=== PATIENT | male | born 1940 | race Two or more races ===

== ENCOUNTER → 2025-03-28 | Outpatient (CLI) | payer MEDICARE, MEDICAID, SELFPAY ==
--- NOTE | 2025-03-28 13:07 | XR_ITS ---
Examination: Bilateral hands, 6 views. Technique: AP, Oblique, Lateral each hand total 6 views Date and time of exam: March 28, 2025, 1317 hours INDICATIONS: Bilateral hand pain beginning 2 months ago. 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
== END | disposition home or self-care (01) ==
LOC: CDIM 13:02
PROVIDERS: Referring Provider Student in an Organized Health Care Education/Training Program; Visit Provider Student in an Organized Health Care Education/Training Program
DX: M18.0 Bilateral primary osteoarthritis of first carpometacarpal joints (principal); M19.042 Primary osteoarthritis, left hand; M19.041 Primary osteoarthritis, right hand
CPT/HCPCS: 73130

== ENCOUNTER 2025-04-18 12:32 | Inpatient (IN) | payer MEDICARE, MEDICAID, SELFPAY ==
[2025-04-18 12:55] VITALS: BP 100/65; PULSE 89; RESP 17; TEMP 36.6; O2SAT 95
--- NOTE | 2025-04-18 12:59 | EKG_ITS ---
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
--- NOTE | 2025-04-18 12:59 | PD.EDRME ---
Rapid Medical Screening Exam RME Arrival date/time: 04/18/25 12:32 84-year-old male with a history of hypertension, hyperlipidemia, type 2 diabetes, presents to the emergency room with a chief complaint of bodyaches, joint pain, and frequent falls x 1 month I have greeted and performed a focused initial assessment of this patient. A comprehensive ED assessment and evaluation of the patient, analysis of all test results, and completion of the medical decision making process will be conducted by additional ED providers. Chief Complaint: Fall Time Seen by Provider: 04/18/25 12:51 Vital signs: Vital Signs Temperature 97.9 F 04/18/25 12:55 Pulse Rate 89 04/18/25 12:55 Respiratory Rate 17 04/18/25 12:55 Blood Pressure 100/65 04/18/25 12:55 Pulse Oximetry (%) 95 04/18/25 12:55 Oxygen Delivery Method Room Air 04/18/25 12:55 Vital signs reviewed by provider: Yes Exam: GCS of 15 Clear bilateral lung sounds Soft nontender abdomen Clinical Impression: Anemia/chronic kidney disease/arthritis
[2025-04-18 13:24] LABS: Basophils # (Auto) 0.0 Thou/mm3 (0.0-0.2); Basophils % (Auto) 0 % (0-2.5); Eosinophils # (Auto) 0.0 Thou/mm3 (0.0-0.5); Eosinophils % (Auto) 0 % (0-10); Hematocrit 39.6 % (41.0-53.0); Hemoglobin 13.6 g/dL (13.5-16.0); Immature Granulocytes Auto 0.03 Thou/mm3 (0.00-0.00); Lymphocytes # (Auto) 1.0 Thou/mm3 (1.0-4.8); Lymphocytes % (Auto) 9 % (10-50); Mean Corpuscular HGB Conc 34.3 g/dl (31.0-37.0); Mean Corpuscular Hemoglobin 29.6 pg (25.0-35.0); Mean Corpuscular Volume 86 fL (80-100); Monocytes # (Auto) 0.6 Thou/mm3 (0.0-0.8); Monocytes % (Auto) 5 % (0-12); Neutrophils # (Auto) 9.8 Thou/mm3 (1.8-7.7); Neutrophils % (Auto) 85 % (37-80); Nucleated Red Blood Cell # 0.00 Thou/mm3 (0.00-0.00); Nucleated Red Blood Cell % 0 /100 WBC (0); Platelet Count 334 Thou/mm3 (140-440); RDW Standard Deviation 43.4 fL (35.1-43.9); Red Blood Count 4.60 Miln/mm3 (4.50-5.90); White Blood Count 11.5 Thou/mm3 (3.8-10.6)
[2025-04-18 13:34] LABS: INR 1.1 (0.9-1.3); Partial Thromboplastin Time 31.7 Seconds (22.0-36.0); Prothrombin Time 11.4 Seconds (9.0-12.2)
[2025-04-18 13:37] LABS: B-Type Natriuretic Peptide 44 pg/mL (0-100)
[2025-04-18 13:43] LABS: Alanine Aminotransferase 25 U/L (10-49); Albumin, Serum 4.7 gm/dL (3.4-4.8); Albumin/Globulin Ratio 1.7 (1.2-2.2); Alkaline Phosphatase 126 U/L (46-116); Anion Gap 14 (7-16); Aspartate Amino Transferase 29 U/L (0-34); BUN/Creatinine Ratio 20 Ratio (12-20); Bilirubin,Total 1.1 mg/dL (0.3-1.2); Blood Urea Nitrogen 18 mg/dL (9-23); Calcium 9.4 mg/dL (8.3-10.6); Calcium (Corrected) 9.4 mg/dL (8.5-10.1); Carbon Dioxide 24.9 mMol/L (20.0-31.0); Chloride 107 mMol/L (98-107); Creatinine (Component) 0.9 mg/dL (0.6-1.3); Free T4 (Free Thyroxine) 1.55 ng/dL (0.89-1.76); Globulin 2.7 gm/dL (2.3-3.5); Glucose 204 mg/dL (74-106); Magnesium 1.6 mg/dL (1.6-2.6); Osmolality,Calculated 298 (275-295); Potassium 4.0 mMol/L (3.4-5.1); Sodium 146 mMol/L (136-145); Thyroid Stimulating Hormone 1.25 uIU/mL (0.55-4.78); Total Protein 7.4 gm/dL (5.7-8.2); Troponin I 0.024 ng/mL (0.0-0.045); eGFR > 60 See Note
[2025-04-18] MEDS: KETOROLAC INJ 60 MG/2 ML VIAL 30 MG IM (16:34)
[2025-04-18 16:56] LABS: Collection Type, Urine Clean Catch
[2025-04-18 17:13] LABS: Bacteria,Urine 3+; Bilirubin,Urine Negative (Negative); Blood,Urine 2+ (Negative); Clarity,Urine Turbid (Clear/Hazy); Color,Urine Yellow (Lt Yel-Yel); Glucose, Urine Negative (Negative); Ketones,Urine 1+ (Negative); Leukocyte Esterase,Urine Positive (Negative); Nitrite,Urine Negative (Negative); PH,Urine 5.5 (5.0-7.0); Protein,Urine 1+ (Neg - Trace); RBC,Urine 22 /hpf (0-3); Specific Gravity,Urine 1.020 (1.001-1.035); Squamous Epithelial Cell,Urine 9 /hpf (0-5); Urobilinogen,Urine 2.0 mg/dL (0.0-1.0); WBC,Urine 87 /hpf (0-5)
[2025-04-18 17:14] LABS: Culture Indicated,Urine Yes
--- NOTE | 2025-04-18 18:31 | PD.EDFALL ---
ED Fall Injury RME/HPI General Chief Complaint: Fall Stated Complaint: FALL X 2, WEAK, SWOLLEN HANDS Time Seen by Provider: 04/18/25 12:51 Arrival date/time: 04/18/25 12:32 RME / HPI RME / HPI Narrative: 04/18/25 12:32 84-year-old male with a history of hypertension, hyperlipidemia, type 2 diabetes, presents to the emergency room with a chief complaint of bodyaches, joint pain, and frequent falls x 1 month I have greeted and performed a focused initial assessment of this patient. A comprehensive ED assessment and evaluation of the patient, analysis of all test results, and completion of the medical decision making process will be conducted by additional ED providers. See MDM for Dr. Shultz's HPI documentation. Related Data Home Medications ?Medication ?Instructions ?Recorded ?Confirmed lisinopril 20 mg tablet 20 mg PO QDAY 02/15/21 09/29/23 lovastatin 20 mg tablet 20 mg PO QDAY 02/15/21 09/29/23 metformin 850 mg tablet 850 mg PO BID 02/15/21 09/29/23 Allergies Allergy/AdvReac Type Severity Reaction Status Date / Time No Known Allergies Allergy Verified 04/18/25 12:37 Review of Systems Review of Systems Systems Reviewed: All systems reviewed, normal except as documented Past Medical History Social History SMOKING STATUS: Never smoker ED Exam Narrative Physical exam: See [facility] for Dr. Shultz's physical exam documentation. Course Quality Measures none Orders Category Date Time Status Admit to Inpatient Status Routine Admission 04/18/25 21:40 Active Patient Condition Routine Admission 04/18/25 21:40 Ordered Bedside COVID-19 Antigen Test NOW Care 04/18/25 18:53 Active Bedside Influenza A&B Antigen Test NOW Care 04/18/25 18:53 Completed Continuous Pulse Oximetry NOW Care 04/18/25 21:39 Active EKG (ED ONLY) *Do not use* NOW Care 04/18/25 12:59 Completed Miscellaneous Nursing Order NOW Care 04/18/25 21:40 Active Notify provider NEEDED Care 04/18/25 21:40 Active Saline [Insert IV] NOW Care 04/18/25 18:53 Active Strict Intake and Output Routine Care 04/18/25 21:41 Ordered Diet Carbohydrate Consistent Diet 04/19/[address] cervical spine wo con Stat Exams 04/18/25 18:[address] chest abdomen pelvis wo Stat Exams 04/18/25 18:[address] head/brain wo con Stat Exams 04/18/25 18:57 Completed EKG (ED Only) Stat Exams 04/18/25 12:59 Draft XR chest 1V portable Stat Exams 04/18/25 18:56 Completed XR femur BI min 2V Stat Exams 04/18/25 18:56 Completed XR foot comp LT min 3V Stat Exams 04/18/25 18:56 Completed XR tibia fibula LT 2V Stat Exams 04/18/25 18:56 Completed B-Type Natriuretic Peptide Stat Lab 04/18/25 13:10 Completed Beta Hydroxybutyrate Stat Lab 04/18/25 19:20 Completed Blood Culture (Lab) Stat Lab 04/18/25 19:20 Received CBC AM DRAW Lab 04/28/25 05:00 Ordered CBC AM DRAW Lab 04/29/25 05:00 Ordered CBC AM DRAW Lab 04/19/25 05:00 Ordered CBC AM DRAW Lab 04/20/25 05:00 Ordered CBC AM DRAW Lab 04/21/25 05:00 Ordered CBC AM DRAW Lab 04/22/25 05:00 Ordered CBC AM DRAW Lab 04/23/25 05:00 Ordered CBC AM DRAW Lab 04/24/25 05:00 Ordered CBC AM DRAW Lab 04/25/25 05:00 Ordered CBC AM DRAW Lab 04/26/25 05:00 Ordered CBC AM DRAW Lab 04/27/25 05:00 Ordered CBC Stat Lab 04/18/25 13:10 Completed CK [Creatine Kinase] Stat Lab 04/18/25 19:25 Received CRP [C-Reactive Protein] Stat Lab 04/18/25 19:20 Completed Comprehensive Metabolic Panel Stat Lab 04/18/25 13:10 Completed ESR [Sed Rate (ESR)] Stat Lab 04/18/25 19:20 Completed Free T4 (Free Thyroxine) Stat Lab 04/18/25 13:10 Completed Hemoglobin A1C [Glycohemoglobin w (eAG)] Stat Lab 04/18/25 19:20 Completed Lactate (Lactic Acid) Stat Lab 04/18/25 19:25 Completed Magnesium AM DRAW Lab 04/19/25 05:00 Ordered Magnesium Stat Lab 04/18/25 13:10 Completed Partial Thromboplastin Time Stat Lab 04/18/25 13:10 Completed Phosphorous AM DRAW Lab 04/19/25 05:00 Ordered Procalcitonin Stat Lab 04/18/25 19:20 Completed Prothrombin Time with INR Stat Lab 04/18/25 13:10 Completed Renal Function Panel AM DRAW Lab 04/28/25 05:00 Ordered Renal Function Panel AM DRAW Lab 04/29/25 05:00 Ordered Renal Function Panel AM DRAW Lab 04/19/25 05:00 Ordered Renal Function Panel AM DRAW Lab 04/20/25 05:00 Ordered Renal Function Panel AM DRAW Lab 04/21/25 05:00 Ordered Renal Function Panel AM DRAW Lab 04/22/25 05:00 Ordered Renal Function Panel AM DRAW Lab 04/23/25 05:00 Ordered Renal Function Panel AM DRAW Lab 04/24/25 05:00 Ordered Renal Function Panel AM DRAW Lab 04/25/25 05:00 Ordered Renal Function Panel AM DRAW Lab 04/26/25 05:00 Ordered Renal Function Panel AM DRAW Lab 04/27/25 05:00 Ordered TSH [Thyroid Stimulating Hormone] Stat Lab 04/18/25 13:10 Completed Troponin I Stat Lab 04/18/25 13:10 Completed Urinalysis, C/S if Indicated Stat Lab 04/18/25 16:49 Completed Urine Culture Stat Lab 04/18/25 16:49 Received VBG [Venous Blood Gas] Stat Lab 04/18/25 19:20 Completed Acetaminophen Tab [Tylenol Tab] Med 04/18/25 21:39 Active 650 mg PO Q6H PRN Heparin Inj Med 04/18/25 21:45 Active 5,000 unit SC Q12H Ketorolac Inj [Toradol Inj] Med 04/18/25 13:01 Discontinued 30 mg IM X1 ONE Magnesium Sulfate 2 GM Ivpb [Magnesium Sulfate Ivpb] Med 04/18/25 18:57 Discontinued 2 gm in 50 ml IV X1 MethylPREDNISolone.* [SoluMEDROL Inj] Med 04/18/25 18:56 Discontinued 125 mg IVP X1 ONE Morphine* Inj Med 04/18/25 18:53 Discontinued 2 mg IV X1 ONE Ondansetron Inj [Zofran Inj] Med 04/18/25 21:39 Active 4 mg IVP Q6H PRN Ondansetron Inj [Zofran Inj] Med 04/18/25 18:53 Discontinued 4 mg IVP X1 ONE Sodium Chloride 0.9% 1000 ml [Ns] 1,000 ml Med 04/18/25 18:53 Discontinued IV 999 mls/hr cefTRIAXone/D5w 1gm IV premix [Rocephin/D5w 1gm IV Med 04/18/25 18:55 Discontinued premix] 1 gm in 50 ml IV X1 Code Status Routine Oth 04/18/25 21:39 Ordered Oxygen Delivery PRN RT 04/18/25 21:39 Active Vital Signs Vital signs: Vital Signs Temperature 97.9 F 04/18/25 12:55 Pulse Rate 89 04/18/25 12:55 Respiratory Rate 17 04/18/25 12:55 Blood Pressure 100/65 04/18/25 12:55 Pulse Oximetry (%) 95 04/18/25 12:55 Oxygen Delivery Method Room Air 04/18/25 12:55 Fall MDM Narrative MDM Narrative:: This section includes all my notes and documentations, including HPI, PE, and ED course. Augustine Shultz MD HPI: 84-year-old male with DM, HTN, BPH, Hyperlipidemia here with generalized weakness and inability to stand and walk. Normally, he walks without assistance and very independent, living alone in a trailer. The day before yesterday, found him on the floor in the trailer. He reported he fell getting out of his sofa due to weakness. After the incident, he was able to ambulate slowly with a walker. Earlier today in the morning, she found him again on the floor. This time, he couldn't remember how he ended up on the floor. Uncertain about falling or head injury or passing out. Daughter reports significant weight loss in the past few months. He has known skin cancer. Uncertain about metastasis. No other complaints. ROS: All negative except as documented in HPI. Physical Exam: General: Alert and oriented. Appearance of malaise and fatigue noted. Eyes: Conjunctivae and lids clear. EOMI. PERRL. ENT: No nasal congestion. Neck: Supple. No carotid bruit. No JVD. Heart: RRR. Lungs: No respiratory distress. Good air movement. No rhonchi, wheezing, rales. Chest: No tenderness. Abdomen: Soft and nontender. Normal bowel sounds. No distension. No rebound or guarding. Back: No CVA tenderness. Legs: No clubbing, cyanosis, edema. Skin: Warm and dry. Neuro: Alert and oriented X 3. Cranial Nerves II-XII grossly intact. No peripheral motor deficits. Musculoskeletal: Equivocal tenderness of right hip/knee and left hip/knee/ankle/foot. All other major joints and bones are not tender with no limited ROM. I reviewed all diagnostic test results. My interpretation of the EKG is NSR. My interpretation of the chest x-ray is: NAD. My interpretation of the bilateral femur x-ray is no fracture. My interpretation of the left foot x-ray is no fracture. My interpretation of the left tibia fibula x-ray is no fracture. My review of the CT head report is: NAD. My review of the CT cervical spine report is no fracture. My review of the CT chest abdomen pelvis report is: NAD. Blood tests remarkable for WBC 11.5, Glucose 204, CRP 8.1. ESR 44. UA remarkable for 1+ ketones, positive leukocyte esterase, 22 RBCs, 87 WBCs, and 3+ bacteria. COVID/Influenza negative. At this point, diagnoses include: UTI (urinary tract infection) Fall Syncope Weight loss Treatment here included: Morphine 2 mg IV Zofran 4 mg IV Solumedrol 125 mg IV MgSO4 2 gram IV Rocephin 1 g IV IVF Some improvement noted. I discussed the case with our hospitalist. About the presentation and exam and diagnostics and treatments here. And need of further care in the hospital. Will accept the patient. Augustine Shultz MD Patient data External records reviewed:: [facility] previous records (Per chart review, patient was seen here on 02/25/22 for a chest wall contusion.) Clinical information provided by:: patient and family Social determinants that could affect healthcare access:: none Patient has the following chronic illnesses:: DM, HTN, BPH How is presenting disease/condition affected by chronic disease/condition?: uneffected by Evaluation data The following diagnostics were reviewed and interpreted by me:: lab results, radiology exam(s) and EKG tracing(s) (My interpretation of the EKG: NSR (84 bpm) with no ST-T changes. Augustine Shultz MD) Lab and/or radiology exams considered but not ordered:: none Interpretation Summary: I reviewed all diagnostic test results. My interpretation of the EKG is NSR. My interpretation of the chest x-ray is: NAD. My interpretation of the bilateral femur x-ray is no fracture. My interpretation of the left foot x-ray is no fracture. My interpretation of the left tibia fibula x-ray is no fracture. My review of the CT head report is: NAD. My review of the CT cervical spine report is no fracture. My review of the CT chest abdomen pelvis report is: NAD. Blood tests remarkable for WBC 11.5, Glucose 204, CRP 8.1. ESR 44. UA remarkable for 1+ ketones, positive leukocyte esterase, 22 RBCs, 87 WBCs, and 3+ bacteria. COVID/Influenza negative. Medications / Prescriptions Medications or Prescriptions considered but not ordered:: none Medication administrations:: Medication Administration History Acetaminophen (Acetaminophen 325 Mg Tablet) 650 mg PO Q6H PRN PRN Reason: Fever >101.5 or pain 1-3 Stop: 05/18/25 21:38 Dextrose (Dextrose 50%-Water Inj 50 Ml Syringe) 25 ml IV Q15MIN PRN PRN Reason: BG 50-70 responsive npo pt Stop: 05/18/25 22:05 Dextrose (Dextrose 50%-Water Inj 50 Ml Syringe) 50 ml IV Q15MIN PRN PRN Reason: BG <50 OR BG <70 & pt unresponsive Stop: 05/18/25 22:05 Glucagon (Glucagon Inj 1 Mg Vial) 1 mg IM Q15MIN PRN PRN Reason: BG <70, and no IV access Heparin Sodium (Porcine) (Heparin Sod Inj 5000 Unit/Ml Vial) 5,000 unit SC Q12H KAREEM Stop: 05/02/25 21:44 Piperacillin/Tazobactam/Dextrose (Zosyn) 50 mls @ 100 mls/hr IV Q6HR [facility]; Protocol Stop: 04/25/25 21:45 Piperacillin/Tazobactam/Dextrose (Zosyn) 3.375 gm in 50 mls @ 100 mls/hr IV X1 ONE; Protocol Stop: 04/18/25 22:29 Insulin Human Lispro (Insulin Lispro (Admelog) 1 Unit/0.01 Ml Unit) 0 unit SC AC [facility]; Protocol Stop: 05/19/25 07:29 Ondansetron HCl (Ondansetron Inj 2 Mg/Ml Inj 2 Ml) 4 mg IVP Q6H PRN; Protocol PRN Reason: NAUSEA OR VOMITING Stop: 05/18/25 21:38 Discontinued Medications Sodium Chloride (Ns) 1,000 mls @ 999 mls/hr IV .Q1H1M ONE Stop: 04/18/25 19:53 Last Infusion: 04/18/25 21:15 Dose: Infused Documented By: Admin: 04/18/25 20:04 Dose: 999 mls/hr Documented By: CARMINA Ceftriaxone Sodium/Dextrose (Rocephin/D5w 1gm Iv Premix) 1 gm in 50 mls @ 100 mls/hr IV X1 ONE Stop: 04/18/25 19:24 Last Infusion: 04/18/25 20:47 Dose: Infused Documented By: Admin: 04/18/25 20:07 Dose: 100 mls/hr Documented By: CARMINA Magnesium Sulfate (Magnesium Sulfate Ivpb) 2 gm in 50 mls @ 25 mls/hr IV X1 ONE Stop: 04/18/25 20:56 Last Admin: 04/18/25 20:46 Dose: 25 mls/hr Documented By: CARMINA Ketorolac Tromethamine (Ketorolac Inj 60 Mg/2 Ml Vial) 30 mg IM X1 ONE Stop: 04/18/25 13:02 Last Admin: 04/18/25 16:34 Dose: 30 mg Documented By: VON Methylprednisolone Sodium Succinate (Methylprednisolone Sod Succ 62.5 Mg/Ml 2ml Vial) 125 mg IVP X1 ONE Stop: 04/18/25 18:57 Last Admin: 04/18/25 20:04 Dose: 125 mg Documented By: CARMINA Morphine Sulfate (Morphine Sulf Inj 4 Mg/Ml Vial) 2 mg IV X1 ONE Stop: 04/18/25 18:54 Last Admin: 04/18/25 21:38 Dose: Not Given Documented By: CARMINA Non-Admin Reason: Patient Refused Ondansetron HCl (Ondansetron Inj 2 Mg/Ml Inj 2 Ml) 4 mg IVP X1 ONE; Protocol Stop: 04/18/25 18:54 Last Admin: 04/18/25 21:40 Dose: Not Given Documented By: CARMINA Non-Admin Reason: Change of Condition Treatment here included: Morphine 2 mg IV Zofran 4 mg IV Solumedrol 125 mg IV MgSO4 2 gram IV Rocephin 1 g IV IVF Consultations Consultation(s) initiated? (list below): Yes Consultation #1 (Physician, Specialty, Details): I discussed the case with our hospitalist. About the presentation and exam and diagnostics and treatments here. And need of further care in the hospital. Will accept the patient. Diagnosis Fall Differential Diagnosis: syncope, fracture of wrist, compression fracture, concussion with loss of consciousness and concussion without loss of consciousness Most likely diagnosis given after review of the tests above:: UTI (urinary tract infection) Fall Syncope Weight loss Admission Indicated Admission indicated?: indicated Explain why admission is indicated or not indicated:: UTI (urinary tract infection) Fall Syncope Weight loss Admission Request Was there a request for admission?: Yes Admission Attestation Admission request attestation: Discussed case with Hospitalist service regarding admission. Discussed patients ED course, exam findings, labs, and radiology results. Agreed to accept the patient for admission. Disposition Plan Disposition Plan: Admit Discharge Plan Plan Patient Disposition: Admit Acute Care w/in Hospital Problem List Clinical Impression: UTI (urinary tract infection), Fall, Syncope, Weight loss
[2025-04-18 18:45] VITALS: BP 142/81; PULSE 79; RESP 17; TEMP 36.8; O2SAT 96
--- NOTE | 2025-04-18 18:45 | PC.NURSE ---
Pt. here to room 18 via wheel chair from home, pt. lives alone and was found on the ground next to the couch by his daughter who lives in [place] and is here visiting pt. Daughter states pt. has lost a lot of weight from Thanksgiving when daughter saw pt. till now. Daughter states pt. has fallen now twice and states pt. told her that his brain tells his legs to work but they won't. Pt. is weak and needed assistance from wheel chair to bed 18. Pt. states he has pain to his arms and both shoulders. Pt. has edema to both hands and both lower legs bilateral +2. Daughter states the decline in pt. from Thanksgi till now is shocking to her. Daughter states pt. was driving 2 weeks ago.
--- NOTE | 2025-04-18 18:56 | XR_ITS ---
Examination: Foot, left, 3 views Technique: AP, oblique, lateral views foot, 3 views Date and time of exam: April 18, 2025, 1934 hours INDICATIONS: Patient fell today with into the foot, foot pain. FINDINGS: Nonstandard views No acute fracture No dislocation IMPRESSION: No acute fracture
--- NOTE | 2025-04-18 18:56 | XR_ITS ---
EXAMINATION: Right and left femur 4 views TECHNIQUE: AP lateral right and left femur total 4 views Date and time: April 18, 2025, 192 hours INDICATIONS: Patient fell today with injury of both lower legs, bilateral lower leg pain. FINDINGS: Moderate narrowing bilateral hip joints No bilateral hip fracture or dislocation Right and left femoral shafts intact IMPRESSION: No acute fractures
--- NOTE | 2025-04-18 18:56 | XR_ITS ---
EXAMINATION: AP chest single view TECHNIQUE: AP portable upright chest single view Date and time: April 18, 2025, 1938 hours, comparison December 04, 2022 INDICATIONS: Shortness of breath today. FINDINGS: Mild prominence left ventricle Moderate vascular congestion Suspicious for early septal edema at the lung bases No lobar pneumonia Prominent osteopenia IMPRESSION: Early heart failure
--- NOTE | 2025-04-18 18:56 | XR_ITS ---
Examination: Tibia-Fibula, left, 2 views Technique: Tibia-fibula AP lateral 2 views Date and time of exam: April 23, 2025, 1932 hours INDICATIONS: Patient fell today with injury to the lower leg, lower leg pain. FINDINGS: No acute fracture No dislocation No foreign body IMPRESSION: No acute fracture
--- NOTE | 2025-04-18 18:57 | XR_ITS ---
Examination: CT chest, without intravenous contrast. CT abdomen, without intravenous contrast. CT pelvis, without intravenous contrast. 2-D sagittal and coronal reconstructions. 3-D reconstructions. Date and time of exam: April 18, 2025, 1912 hours INDICATIONS: Frequent falls today with injury of the chest and abdomen, chest pain abdomen pain CTDI vol (mgy) 7.06 DLP (MGycm) 474 Technique: Multiple CT images, 3.0 mm slice thickness, obtained chest, abdomen, pelvis, with the high-resolution 64 slice scanner.. Sagittal and coronal 2-D reconstructions are obtained. 3-D reconstructions Low dose protocols were performed. One or more of the following dose reduction techniques were used; automated exposure control, adjustment of the mA and/or KV according to patient size, use of iterative reconstruction technique. Findings: Thoracic aorta pulmonary arteries appear intact No hemopericardium Prominent calcification left anterior descending coronary artery Mild enlargement cardiac contour. No pneumothorax pulmonary contusion or hemothorax The manubrium and the body of the sternum are intact No thoracic lumbar or sacral fracture noted Ribs appear intact No liver splenic or renal laceration No perinephric hematoma Benign left renal cyst Aorta normal size No bowel obstruction Normal appendix Negative for pneumoperitoneum Tiny air droplets in the urinary bladder Moderate prostatomegaly Bones of the pelvis and hips appear intact IMPRESSION: Thoracic aorta pulmonary arteries intact No hemopericardium, pneumothorax, pulmonary contusion or hemothorax No abdominal parenchymal laceration No free blood in the abdomen or pelvis Abdominal aorta intact
--- NOTE | 2025-04-18 18:57 | XR_ITS ---
Examination: CT brain head without contrast. 2-D sagittal coronal reconstructions Date and time of exam: April 18, 2025, 1909 hours INDICATIONS: Patient fell today, injury to the back of the head, head pain COMPARISON: February 25, 2022 CTDI: vol (mGy): 51 DLP: (mGycm): 1048 Technique: Multiple CT axial sections of the brain have been obtained, 5 mm slice thickness. Contrast has not been administered. 2-D sagittal, coronal reconstructions have been obtained Low dose protocols were performed. One or more of the following dose reduction techniques were used; automated exposure control, adjustment of the mA and/or KV according to patient size, use of iterative reconstruction technique. Findings: No significant ventricular enlargement. Intra-axial or extra-axial hemorrhage density is not seen. No mass effect or midline shift Basal cisterns are not remarkable. Fourth ventricle is midline. Cranial vault intact. Impression: Negative for acute hemorrhage, mass effect or midline shift
--- NOTE | 2025-04-18 18:57 | XR_ITS ---
Examination: CT cervical spine without contrast 2-D sagittal reconstructions 2-D coronal reconstructions 3-D reconstructions. Exam date and time: April 18, 2025, 1909 hours Ground-level fall today with into the neck, neck pain CTDI:vol (mGy) 15.2 DLP: (mGycm) 332 Technique: Multiple 2 mm axial sections of the cervical spine have been obtained. The coronal and sagittal reconstructions have been obtained. 3-D reconstructions have been obtained. Low dose protocols were performed. One or more of the following dose reduction techniques were used; automated exposure control, adjustment of the mA and/or KV according to patient size, use of iterative reconstruction technique. Findings: Axial sections demonstrate intact base of the skull. C1 exhibit satisfactory relationship to the odontoid. No acute cervical vertebral body fracture seen. Alignment posterior spinous processes satisfactory. Impression: No acute cervical fracture.
[2025-04-18 19:33] LABS: Lactate (Lactic Acid) 1.5 mMol/L (0.4-2.0)
[2025-04-18 19:36] LABS: Beta Hydroxybutyrate 0.3 mmol/L (<0.6)
[2025-04-18 19:40] LABS: Base Excess, Venous 2 (-3-3); O2 Saturation, Venous 85 % (96-97); PCO2, Venous 30 mmHg (36-56); PO2, Venous 49 mmHg (15-58); pH, Venous 7.52 (7.33-7.66)
[2025-04-18 19:41] LABS: Sed Rate (ESR) 44 mm/hr (0-20)
[2025-04-18 19:57] LABS: Glucose Estimated Average 134 mg/dL (80-131); Hemoglobin A1C 6.3 % Hgb (4.8-6.0)
[2025-04-18 20:04] LABS: C-Reactive Protein 8.1 mg/dL (0.0-0.9); Procalcitonin 0.13 ng/ml (0.0-0.49)
[2025-04-18] MEDS: SODIUM CHLORIDE 0.9% 1000 ML 1,000 ML 999 ML IV (20:04)
[2025-04-18] MEDS: MethylPREDNISolone SOD SUCC 62.5 MG/ML 2ML VIAL 125 MG IVP (20:04)
[2025-04-18] MEDS: cefTRIAXone/D5w 1gm IV premix 1 GM/50 ML BAG IV (20:07)
[2025-04-18 20:08] VITALS: BMI 27.4
[2025-04-18] MEDS: Magnesium Sulfate 2 GM Ivpb 2 GM/50 ML BAG IV (20:46)
[2025-04-18 21:19] VITALS: BP 165/70; PULSE 91; RESP 17; O2SAT 94
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
[2025-04-18 22:34] LABS: Creatine Kinase 148 U/L (34-171)
[2025-04-18] MEDS: PIPER/TAZO 3.375 GM PREMIX 3.375 GM/50 ML BAG IV (22:52)
[2025-04-18] MEDS: HEPARIN SOD INJ 5000 UNIT/ML VIAL SC (22:52)
[2025-04-18 23:00] VITALS: BP 141/79; PULSE 90; RESP 18; O2SAT 94
[2025-04-18 23:32] VITALS: PULSE 88; RESP 18; RESP 92; O2SAT 95
[2025-04-19] VITALS (13 sets, daily range): BP systolic 98–146; BP diastolic 57–79; PULSE 61–100; RESP 14–92; TEMP 36.3–37; O2SAT 92–96
[2025-04-19] MEDS: PIPER/TAZO 3.375 GM PREMIX 3.375 GM/50 ML BAG IV ×3 (05:17→21:51)
[2025-04-19 06:23] LABS: Basophils # (Auto) 0.0 Thou/mm3 (0.0-0.2); Basophils % (Auto) 0 % (0-2.5); Eosinophils # (Auto) 0.0 Thou/mm3 (0.0-0.5); Eosinophils % (Auto) 0 % (0-10); Hematocrit 36.2 % (41.0-53.0); Hemoglobin 12.2 g/dL (13.5-16.0); Immature Granulocytes Auto 0.02 Thou/mm3 (0.00-0.00); Lymphocytes # (Auto) 0.7 Thou/mm3 (1.0-4.8); Lymphocytes % (Auto) 10 % (10-50); Mean Corpuscular HGB Conc 33.7 g/dl (31.0-37.0); Mean Corpuscular Hemoglobin 29.6 pg (25.0-35.0); Mean Corpuscular Volume 88 fL (80-100); Monocytes # (Auto) 0.0 Thou/mm3 (0.0-0.8); Monocytes % (Auto) 0 % (0-12); Neutrophils # (Auto) 6.0 Thou/mm3 (1.8-7.7); Neutrophils % (Auto) 90 % (37-80); Nucleated Red Blood Cell # 0.00 Thou/mm3 (0.00-0.00); Nucleated Red Blood Cell % 0 /100 WBC (0); Platelet Count 307 Thou/mm3 (140-440); RDW Standard Deviation 45.0 fL (35.1-43.9); Red Blood Count 4.12 Miln/mm3 (4.50-5.90); White Blood Count 6.7 Thou/mm3 (3.8-10.6)
[2025-04-19 06:43] LABS: Albumin, Serum 3.8 gm/dL (3.4-4.8); Anion Gap 13 (7-16); BUN/Creatinine Ratio 27 Ratio (12-20); Blood Urea Nitrogen 24 mg/dL (9-23); Calcium 8.9 mg/dL (8.3-10.6); Calcium (Corrected) 9.1 mg/dL (8.5-10.1); Carbon Dioxide 23.5 mMol/L (20.0-31.0); Chloride 109 mMol/L (98-107); Creatinine (Component) 0.9 mg/dL (0.6-1.3); Estimated Creatinine Clearance 50.9 mL/min (>60); Glucose 222 mg/dL (74-106); Magnesium 2.2 mg/dL (1.6-2.6); Osmolality,Calculated 299 (275-295); Phosphorous 3.2 mg/dL (2.4-5.1); Potassium 3.7 mMol/L (3.4-5.1); Sodium 145 mMol/L (136-145); eGFR > 60 See Note
[2025-04-19] MEDS: INSULIN LISPRO (AdmeLOG) 1 UNIT/0.01 ML UNIT SC ×3 (07:28→16:49)
[2025-04-19] MEDS: HEPARIN SOD INJ 5000 UNIT/ML VIAL SC (08:54)
[2025-04-19] MEDS: TAMSULOSIN HCL 0.4 MG CAPSULE PO (09:35)
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
[2025-04-19] MEDS: ENOXAPARIN SOD INJ 40 MG/0.4 ML SYRINGE SC (21:50)
[2025-04-20] VITALS (12 sets, daily range): BP systolic 118–135; BP diastolic 57–64; PULSE 62–78; RESP 13–94; TEMP 36.3–36.9; O2SAT 90–95
[2025-04-20] MEDS: PIPER/TAZO 3.375 GM PREMIX 3.375 GM/50 ML BAG IV ×3 (05:16→22:42)
[2025-04-20 06:00] LABS: Basophils # (Auto) 0.0 Thou/mm3 (0.0-0.2); Basophils % (Auto) 0 % (0-2.5); Eosinophils # (Auto) 0.0 Thou/mm3 (0.0-0.5); Eosinophils % (Auto) 0 % (0-10); Hematocrit 33.0 % (41.0-53.0); Hemoglobin 11.1 g/dL (13.5-16.0); Immature Granulocytes Auto 0.02 Thou/mm3 (0.00-0.00); Lymphocytes # (Auto) 1.6 Thou/mm3 (1.0-4.8); Lymphocytes % (Auto) 19 % (10-50); Mean Corpuscular HGB Conc 33.6 g/dl (31.0-37.0); Mean Corpuscular Hemoglobin 29.9 pg (25.0-35.0); Mean Corpuscular Volume 89 fL (80-100); Monocytes # (Auto) 0.5 Thou/mm3 (0.0-0.8); Monocytes % (Auto) 6 % (0-12); Neutrophils # (Auto) 6.5 Thou/mm3 (1.8-7.7); Neutrophils % (Auto) 75 % (37-80); Nucleated Red Blood Cell # 0.00 Thou/mm3 (0.00-0.00); Nucleated Red Blood Cell % 0 /100 WBC (0); Platelet Count 252 Thou/mm3 (140-440); RDW Standard Deviation 45.4 fL (35.1-43.9); Red Blood Count 3.71 Miln/mm3 (4.50-5.90); White Blood Count 8.6 Thou/mm3 (3.8-10.6)
[2025-04-20 06:11] LABS: Albumin, Serum 3.5 gm/dL (3.4-4.8); Anion Gap 11 (7-16); BUN/Creatinine Ratio 34 Ratio (12-20); Blood Urea Nitrogen 27 mg/dL (9-23); Calcium 8.8 mg/dL (8.3-10.6); Calcium (Corrected) 9.2 mg/dL (8.5-10.1); Carbon Dioxide 25.0 mMol/L (20.0-31.0); Chloride 110 mMol/L (98-107); Creatinine (Component) 0.8 mg/dL (0.6-1.3); Estimated Creatinine Clearance 57.3 mL/min (>60); Glucose 137 mg/dL (74-106); Osmolality,Calculated 297 (275-295); Phosphorous 2.4 mg/dL (2.4-5.1); Potassium 3.4 mMol/L (3.4-5.1); Sodium 146 mMol/L (136-145); eGFR > 60 See Note
[2025-04-20] MEDS: TAMSULOSIN HCL 0.4 MG CAPSULE PO (08:25)
--- NOTE | 2025-04-20 12:54 | PC.SS ---
SS met with pt and his 2 daughters to discuss d/c to SNF vs home. SS provided verbal choices. Daughter, Jaelyn Mcgraw, phone# [phone] prefers, [facility] or [place]. SS has sent inquiry using [employer].
--- NOTE | 2025-04-20 13:16 | PC.PT ---
Patient will be dc from PT services secondary to patient is I with transfers and ambulation.
--- NOTE | 2025-04-20 13:44 | PD.RESDS ---
Planned Discharge Date 04/20/25 DS: Providers Provider Date of admission: 04/18/25 21:40 Primary care physician: MAX Meadows Admitting Provider: Tiffanie Cloud DO Attending Provider on Admission: Alyse Boyer MD Consults: 04/18/25 21:48 PT [Referral Physical Therapy] Routine Comment: Physician Instructions: Attending Provider on DC: Alyse Boyer MD Discharging Provider: Alyse Boyer MD Hospital Course Hospital Course Hospital course: ED course: Discharge instructions: ? You have been started on an antibiotic for your urine infection. Take 1 tablet twice a day for the next 5 days. Take your first dose tonight on 04/20. ? We have decreased your dose of metformin to 1 tablet once a day. ? We have put a hold on your ibuprofen, use diclofenac gel instead. ? We have put a hold on your amlodipine because your blood pressures have been normal while in hospital. This can also cause dizziness if your blood pressure gets too low. ? Follow-up with outpatient physical therapy. - Check your blood pressure daily, If the top number is less than 110, do not take your blood pressure medication that day. - See your PCP for a referral to a Fine Arts Teacher for your joint pain. - Follow up with your primary care physician within 1 week of discharge. If you do not have a primary care physician, please follow up with the [facility] Residents clinic ([phone]) ? If you experience any new, worsening or persistent symptoms either call your primary doctor, or dial 911 or present to the emergency department. Admission diagnoses: Case discussed with my attending , and senior resident, Dr. Gumaro Perera MD PGY-1 Status at Discharge Overall status at discharge: patient is progressing back to baseline Time Spent with Patient Time attestation: Total time spent providing and/or coordinating discharge services: Time spent: Greater than 30 minutes Exam Vital Signs Temp Pulse Resp BP Pulse Ox O2 Del Method O2 Flow Rate 98.1 F 62 18 125/60 90 L Room Air 1 04/20/25 07:28 04/20/25 12:00 04/20/25 07:28 04/20/25 07:28 04/20/25 07:28 04/20/25 07:28 04/18/25 23:32 Discharge Plan Plan Patient Disposition: HOME (Self Care) Patient condition on transfer: Stable and Benefits outweigh risks Care Plan Goals: ? You have been started on an antibiotic for your urine infection. Take 1 tablet twice a day for the next 5 days. Take your first dose tonight on 04/20. ? We have decreased your dose of metformin to 1 tablet once a day. ? We have put a hold on your ibuprofen, use diclofenac gel instead. ? We have put a hold on your amlodipine because your blood pressures have been normal while in hospital. This can also cause dizziness if your blood pressure gets too low. ? Follow-up with outpatient physical therapy. - Check your blood pressure daily, If the top number is less than 110, do not take your blood pressure medication that day. - See your PCP for a referral to a Fine Arts Teacher for your joint pain. - Follow up with your primary care physician within 1 week of discharge. If you do not have a primary care physician, please follow up with the [facility] Residents clinic ([phone]) ? If you experience any new, worsening or persistent symptoms either call your primary doctor, or dial 911 or present to the emergency department. Prescriptions/Referrals Prescriptions/Med Rec: New diclofenac sodium 1 % Gel 2 g top QID MDD 10 grams PRN (Reason: joint or back pain) 30 Days Qty: 100 2RF Rx Instructions: For arthritis pain amoxicillin-pot clavulanate 875-125 mg tablet 1 tab PO BID 5 Days Qty: 10 0RF metformin [Fortamet] 1,000 mg tablet extended release 24hr 1,000 mg PO QDAY 30 Days Qty: 30 2RF (DME) blood pressure monitor [Blood Pressure Kit] Kit See Rx Instructions .Route Qty: 1 0RF Rx Instructions: As directed (DME) Blood Pressure Cuff [facility] [place] See Rx Instructions .Route Qty: 1 0RF Rx Instructions: As directed Continued lisinopril 20 mg tablet 20 mg PO QDAY atorvastatin 20 mg tablet 20 mg PO HS Patient Comments: TAKE 1 TABLET BY MOUTH EVERY NIGHT FOR CHOLESTEROL acetaminophen [Arthritis Pain Relief (acetam)] 650 mg tablet extended release 650 mg PO Q8H PRN (Reason: pain) Held amlodipine 10 mg tablet 10 mg PO QDAY Hold Instructions: Resume on 05/04/25. Until your Systolic blood pressure is consistently more than 130 or diastolic blood pressure is more than 90, or you follow up with your PCP. Patient Comments: TAKE 1 TABLET BY MOUTH EVERY MORNING ibuprofen 600 mg tablet 600 mg PO Q6H PRN (Reason: pain) Hold Instructions: Resume on 04/27/25. Hold until you see your PCP Patient Comments: TAKE 1 TABLET BY MOUTH UP TO FOUR TIMES DAILY WITH FOOD Discontinued metformin 850 mg tablet 1,000 mg PO BID Referrals: Eloisa Nelson FNP [Primary Care Provider] Patient/Caregiver Discharge Instructions Education Materials: Checking Your Own Blood Pressure, Urinary Tract Infections in Men, What Is Syncope?, Causes of Syncope, Blood Pressure Check Steps Print Language: Divehi Stand Alone Forms: Niurka Award Info., Patient Portal Info Letter
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
[2025-04-20] MEDS: ENOXAPARIN SOD INJ 40 MG/0.4 ML SYRINGE SC (22:49)
[2025-04-20] MEDS: INSULIN LISPRO (AdmeLOG) 1 UNIT/0.01 ML UNIT SC (22:50)
[2025-04-21] VITALS: BP 129/60; PULSE 59; RESP 26; TEMP 36.8; O2SAT 92
[2025-04-21 04:00] VITALS: BP 144/67; PULSE 62; RESP 16; TEMP 36.8; O2SAT 92
[2025-04-21 04:30] VITALS: PULSE 60
[2025-04-21 05:33] LABS: Basophils # (Auto) 0.0 Thou/mm3 (0.0-0.2); Basophils % (Auto) 0 % (0-2.5); Eosinophils # (Auto) 0.2 Thou/mm3 (0.0-0.5); Eosinophils % (Auto) 3 % (0-10); Hematocrit 35.3 % (41.0-53.0); Hemoglobin 11.7 g/dL (13.5-16.0); Immature Granulocytes Auto 0.05 Thou/mm3 (0.00-0.00); Lymphocytes # (Auto) 1.6 Thou/mm3 (1.0-4.8); Lymphocytes % (Auto) 23 % (10-50); Mean Corpuscular HGB Conc 33.1 g/dl (31.0-37.0); Mean Corpuscular Hemoglobin 29.0 pg (25.0-35.0); Mean Corpuscular Volume 88 fL (80-100); Monocytes # (Auto) 0.4 Thou/mm3 (0.0-0.8); Monocytes % (Auto) 6 % (0-12); Neutrophils # (Auto) 4.8 Thou/mm3 (1.8-7.7); Neutrophils % (Auto) 68 % (37-80); Nucleated Red Blood Cell # 0.00 Thou/mm3 (0.00-0.00); Nucleated Red Blood Cell % 0 /100 WBC (0); Platelet Count 271 Thou/mm3 (140-440); RDW Standard Deviation 44.9 fL (35.1-43.9); Red Blood Count 4.03 Miln/mm3 (4.50-5.90); White Blood Count 7.0 Thou/mm3 (3.8-10.6)
[2025-04-21 06:13] LABS: Albumin, Serum 3.9 gm/dL (3.4-4.8); Anion Gap 13 (7-16); BUN/Creatinine Ratio 29 Ratio (12-20); Blood Urea Nitrogen 20 mg/dL (9-23); Calcium 8.6 mg/dL (8.3-10.6); Calcium (Corrected) 8.7 mg/dL (8.5-10.1); Carbon Dioxide 25.9 mMol/L (20.0-31.0); Chloride 108 mMol/L (98-107); Creatinine (Component) 0.7 mg/dL (0.6-1.3); Estimated Creatinine Clearance 65.4 mL/min (>60); Glucose 119 mg/dL (74-106); Osmolality,Calculated 296 (275-295); Phosphorous 2.9 mg/dL (2.4-5.1); Potassium 3.5 mMol/L (3.4-5.1); Sodium 147 mMol/L (136-145); eGFR > 60 See Note
[2025-04-21] MEDS: PIPER/TAZO 3.375 GM PREMIX 3.375 GM/50 ML BAG IV (07:08)
[2025-04-21 08:00] VITALS: BP 147/75; PULSE 64; PULSE 76; RESP 14; TEMP 36.8; O2SAT 91
[2025-04-21] MEDS: TAMSULOSIN HCL 0.4 MG CAPSULE PO (08:01)
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
[2025-04-21] MEDS: POTASSIUM CHLORIDE 10% 20 MEQ/15 ML UDC 40 MEQ PO (10:12)
--- NOTE | 2025-04-21 10:37 | PC.SS ---
SS communicated with Laura from [facility] they are able to accept pt today and she is requesting PAS[facility] be sent through [facility]. SS has sent PASRR through file exchange and [facility]. Dtr will be providing transportation after 1pm. Bedside nurse, Laura is aware and provided her with [facility]'s phone # to give report. Alyse SANCHES is aware. Laura from [facility] is awre.
[2025-04-21] MEDS: DEXTROSE 5%-WATER 1,000 ML 250 ML IV (11:34)
[2025-04-21 12:00] VITALS: BP 129/66; PULSE 69; RESP 15; TEMP 36.7; O2SAT 91
== END 2025-04-21 15:35 | disposition skilled nursing facility (03) | DRG 690 ==
LOC: SERX 21:42 → SERHOLD 21:53 → S3NX 23:14
PROVIDERS: Nurse Practitioner Family; Admitting Provider Internal Medicine; Emergency Provider Emergency Medicine; PCP Student in an Organized Health Care Education/Training Program; Visit Provider Student in an Organized Health Care Education/Training Program
DX: N39.0 Urinary tract infection, site not specified (principal); R29.6 Repeated falls; E11.9 Type 2 diabetes mellitus without complications; I10 Essential (primary) hypertension; N40.1 Benign prostatic hyperplasia with lower urinary tract symptoms; R32 Unspecified urinary incontinence; E78.5 Hyperlipidemia, unspecified; B96.1 Klebsiella pneumoniae [K. pneumoniae] as the cause of diseases classified elsewhere; N28.1 Cyst of kidney, acquired; Z66 Do not resuscitate; Z90.79 Acquired absence of other genital organ(s); W19.XXXA Unspecified fall, initial encounter; Z79.84 Long term (current) use of oral hypoglycemic drugs
CPT/HCPCS: 36415; 70450; 71045; 71250; 72125; 73552; 73590; 73630; 74176; 80053; 80069; 81001; 82010; 82550; 82803; 83036; 83605; 83735; 83880; 84145; 84439; 84443; 84484; 85025; 85610; 85652; 85730; 86140; 87040; 87077; 87086; 87186; 87502; 87635; 93005; 93225; 96365; 96366; 96372; 96375; 97162; 99284; J0696; J1644; J1650; J1815; J1885; J2543; J2919; J3475; J7030; J7070; A9270